=== PATIENT | male | born 1940 | race Caucasian/White ===

== ENCOUNTER → 2016-07-05 | Outpatient (CLI) | payer OTHER ==
--- NOTE | 2016-07-05 16:36 | DX ---
Bilateral feet, 3 views each side.. History: Painful bunions, evaluate for arthritis. Comparison examination:none available Findings: Left foot: Moderate hallux valgus with lateral subluxation of the sesamoids. Bipartite tibial sesamoi d. Mild joint space narrowing of the first metatarsal phalangeal joint. Small plantar calcaneal spur incidentally noted. Right foot: Moderate hallux valgus, again with mild joint space narrowing of the first metatarsal pha langeal joint. Bipartite tibial sesamoid, with lateral subluxation of the sesamoids. Study is otherwise unremarkable. No erosive changes identified. 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
== END ==
LOC: BMCIMAGING 11:15
PROVIDERS: ATTEND Podiatrist Foot & Ankle Surgery
DX: M21.611 Bunion of right foot (principal); M20.11 Hallux valgus (acquired), right foot; M19.071 Primary osteoarthritis, right ankle and foot; M21.612 Bunion of left foot; M20.12 Hallux valgus (acquired), left foot; M19.072 Primary osteoarthritis, left ankle and foot

== ENCOUNTER → 2017-01-03 | Outpatient (CLI) | payer OTHER | LOC: BHFA 10:00 | PROVIDERS: ATTEND Internal Medicine Cardiovascular Disease | DX: I48.91 Unspecified atrial fibrillation (principal) ==

== ENCOUNTER 2017-07-23 16:09 | Observation (INO) | payer OTHER ==
--- NOTE | 2017-07-23 16:49 | CPEKG ---
Heart Rate: 73 RR Interval: 822 P-R Interval: 188 QRSD Interval: 92 QT Interval: 352 QTC Interval: 388 P [place]: 31 QRS [place]: 7 T Wave [place]: 41 EKG Severity - NORMAL ECG - EKG Impression: SINUS RHYTHM Electronically Signed By: Celine Toney 23-Jul-2017 22:58:04
[2017-07-23] MEDS ORDERED: NS 1,000 ML IV ONE (16:51)
--- NOTE | 2017-07-23 16:51 | EDPHY ---
H & P Stated Complaint: pt was unsteady/tripped hiking/prob getting up/hx afib Time Seen by Provider: 07/23/17 16:50 HPI/ROS: HPI: This is a 76-year-old male who presents with Chief Complaint: pt was unsteady/tripped hiking/prob getting up/hx afib Location: Head Quality: Dizziness Duration: 1 hr prior to arrival Signs and Symptoms: no shortness of breath at rest, no shortness of breath on exertion, no cough, no chest pain, no palpitations, no lower extremity edema, no wheezing, no orthopnea, no paroxysmal nocturnal dyspnea, no fever, no injury/ trauma, no hemoptysis Timing: Acute Severity: Moderate Context: History of atrial fibrillation on Cardizem and aspirin presents to the emergency with complaints of waking up not feeling right. He went for a hike and 20 min and started to feel lightheaded and tripped over a rock with his feet landing forward. He reports that he did not lose consciousness but is not able to 100% tell me that he can remember all of the events. He denies any headache/neck pain/nausea/vomiting. reports this morning he felt "off" and feels like his bilateral legs are not coordinated likely should be and feels some balance deficits. Patient reports that he has a history atrial fibrillation and is followed by Dr. Fitch. Has a monitor and placed in his chest ; last interrogation was 1-2 years ago. Denies any chest pain/palpitation/ lower extremity edema. Patient reports that his son was arrested yesterday and has been under a lot of stress since that time. Denies any cough, fever, urinary symptoms. Modifying Factors: None Comment: ROS: see HPI Constitutional: No fever, no chills, no weight loss Eyes: No blurred vision Respiratory: No shortness of breath, no cough Cardiovascular: No chest pain, no palpitations, no lower extremity edema Gastrointestinal: No nausea, no vomiting, no diarrhea Genitourinary: No dysuria Extremities: No myalgias Neurologic: No weakness, no numbness Skin: No rashes Hematologic: No bruising, no bleeding MEDICAL/SURGICAL/SOCIAL HISTORY: Medical history: AFIB, HTN, erectile dysfunction Surgical history: Denies Social history: with children. CONSTITUTIONAL: Extremely pleasant elderly white male, at bedside, awake and alert, no obvious distress HEENT: Atraumatic and normocephalic, PERRL, EOMI. Tympanic membranes clear. Oropharynx clear, no exudate and moist pink mucosa. Airway patent. No lymphadenopathy. No meningismus. Cardiovascular: Normal S1/S2, regular rate, regular rhythm, without murmur rub or gallop. PULMONARY/CHEST: Symmetrical and nontender. Clear to auscultation bilaterally. Good air movement. No accessory muscle usage. ABDOMEN: Soft, nondistended, nontender, no rebound, no guarding, no peritoneal signs, no masses or organomegaly. No CVAT. EXTREMITIES: 2/2 pulses, strength 5/5, no deformities, no clubbing, no cyanosis or edema. NEUROLOGICAL: no focal neuro deficits. GCS 15. SKIN: Warm and dry, no erythema. no rash. Good capillary refill. Source: Patient Exam Limitations: No limitations - Personal History Current Tetanus/Diphtheria Vaccine: Yes Tetanus Vaccine Date: < 10 - Medical/Surgical History Hx Asthma: No Hx Chronic Respiratory Disease: No Hx Diabetes: No Hx Cardiac Disease: Yes Hx Renal Disease: No Hx Cirrhosis: No Hx Alcoholism: No Hx HIV/AIDS: No Hx Splenectomy or Spleen Trauma: No Other PMH: AFIB,HTN,erectile dysfunction - Social History Smoking Status: Never smoked Constitutional: Initial Vital Signs Temperature (C) 36.2 C 07/23/17 16:21 Heart Rate 81 07/23/17 16:21 Respiratory Rate 18 07/23/17 16:21 Blood Pressure 147/101 H 07/23/17 16:21 O2 Sat (%) 94 07/23/17 16:21 O2 Delivery Mode Room Air Allergies/Adverse Reactions: No Known Allergies Allergy (Verified 07/23/17 16:19) Home Medications: Medication Instructions Recorded Ascorbic Acid [Vitamin C 500 mg 500 mg PO DAILY 03/02/15 (*)] Lisinopril [Zestril 40 mg (*)] 40 mg PO DAILY 03/02/15 Multivitamins [Multivitamin (*)] 1 each PO DAILY 03/02/15 [place]-3 Fatty Acids [Fish Oil 1000 2,000 mg PO DAILY 03/02/15 mg (*)] Omeprazole 40 mg PO DAILY 03/02/15 Melatonin [Melatonin 1 mg] 1 mg PO HS PRN 12/28/15 Melatonin [Melatonin 3 MG (*)] 1.5 - 3 mg PO HS PRN #0 tab 12/29/15 Aspirin 81mg (*) 07/23/17 Cardizem 07/23/17 Medical Decision Making - Diagnostics Imaging Results: Imaging Impressions Head CT 07/23/17 16:51 Impression: No evidence for acute intracranial abnormality. Mild to moderate chronic sinus related change. Results called and discussed with Aissatou Mario on 07/23/2017, 17:47. ED Course/Re-evaluation: EKG, labs, head CT scan, urinalysis EKG shows normal sinus rhythm with a rate of 73 beats per minute. Head CT scan per radiologist no acute intracranial process. Orthostatics unable to be obtained as patient was standing and leaning towards the right. Labs reviewed and grossly unremarkable. Differential at this point includes syncope versus CVA; symptoms started this morning; not tPA candidate. 1755: ED decision to consult for admission. Spoke with hospitalist, Dr. Leiva , who kindly agrees to admit patient for further evaluation and treatment. Agrees with ordering MRI Brain without, angio head and neck. This patient was seen under the supervision of my primary supervising physician. I evaluated care for this patient independently. Discussed this patient with Dr. Toney who did not see the patient. Differential Diagnosis: Dizziness including but not limited to peripheral and central causes of vertigo , orthostatic causes including dehydration, and blood loss. - Data Points Laboratory Results: Laboratory Results 07/23/17 17:05 07/23/17 17:05 07/23/17 07/23/17 17:05 17:05 WBC 4.56 10^3/uL 10^3/uL (3.80-9.50) RBC 5.53 10^6/uL 10^6/uL (4.40-6.38) Hgb 15.8 g/dL g/dL (13.7-17.5) Hct 46.2 % % (40.0-51.0) MCV 83.5 fL fL (81.5-99.8) MCH 28.6 pg pg (27.9-34.1) MCHC 34.2 g/dL g/dL (32.4-36.7) RDW 13.4 % % (11.5-15.2) Plt Count 138 10^3/uL L 10^3/uL (150-400) MPV 9.5 fL fL (8.7-11.7) Neut % (Auto) 89.6 % H % (39.3-74.2) Lymph % (Auto) 4.8 % L % (15.0-45.0) [place] % (Auto) 3.7 % L % (4.5-13.0) Eos % (Auto) 1.1 % % (0.6-7.6) Baso % (Auto) 0.4 % % (0.3-1.7) Nucleat RBC Rel Count 0.0 % % (0.0-0.2) Absolute Neuts (auto) 4.08 10^3/uL 10^3/uL (1.70-6.50) Absolute Lymphs (auto) 0.22 10^3/uL L 10^3/uL (1.00-3.00) Absolute Monos (auto) 0.17 10^3/uL L 10^3/uL (0.30-0.80) Absolute Eos (auto) 0.05 10^3/uL 10^3/uL (0.03-0.40) Absolute Basos (auto) 0.02 10^3/uL 10^3/uL (0.02-0.10) Absolute Nucleated RBC 0.00 10^3/uL 10^3/uL (0-0.01) Immature Gran % 0.4 % % (0.0-1.1) Immature Gran # 0.02 10^3/uL 10^3/uL (0.00-0.10) Sodium 136 mEq/L mEq/L (135-145) Potassium 3.8 mEq/L mEq/L (3.5-5.2) Chloride 102 mEq/L mEq/L (97-110) Carbon Dioxide 23 mEq/l mEq/l (22-31) Anion Gap 11 mEq/L mEq/L (8-16) BUN 17 mg/dL mg/dL (7-23) Creatinine 0.9 mg/dL mg/dL (0.7-1.3) Estimated GFR > 60 Glucose 105 mg/dL H mg/dL (70-100) Calcium 8.7 mg/dL mg/dL (8.5-10.4) Troponin I < 0.012 ng/mL ng/mL (0.000-0.034) NT-Pro-B Natriuret Pep 448 pg/mL H pg/mL (0-125) Medications Given: Discontinued Medications Sodium Chloride (Ns) 1,000 mls @ 0 mls/hr IV ONCE ONE; Wide Open PRN Reason: Protocol Stop: 07/23/17 16:52 Last Admin: 07/23/17 17:53 Dose: 1,000 mls Departure - Departure Disposition: [facility] Inpatient Acute Clinical Impression: Syncope Qualifiers: Syncope type: unspecified Qualified Code(s): R55 - Syncope and collapse TIA (transient ischemic attack) Qualifiers: Transient cerebral ischemia type: unspecified Qualified Code(s): G45.9 - Transient cerebral ischemic attack, unspecified Condition: Fair
[2017-07-23 17:40] LABS: PLATELET COUNT 138 10^3/uL (150-400)
[2017-07-23] MEDS ORDERED: HYDROCODONE/APAP 5/325 TAB PO PRN (19:43)
[2017-07-23] MEDS ORDERED: ACETAMINOPHEN 325 MG TAB PO PRN (19:43)
[2017-07-23] MEDS ORDERED: NS 1,000 ML IV SCH (19:45)
[2017-07-23] MEDS ORDERED: GADOBUTROL 10 ML VIAL IVP ONE (19:54)
[2017-07-24 04:17] LABS: PLATELET COUNT 108 10^3/uL (150-400)
[2017-07-24] MEDS ORDERED: DILTIAZEM CD 180 MG CAP PO SCH (09:00)
[2017-07-24] MEDS ORDERED: ENOXAPARIN 40 MG/0.4 ML SYR SC SCH (09:00)
--- NOTE | 2017-07-24 09:46 | PDGENHP ---
History and Physical - Chief Complaint Dizziness - History of Present Illness Source-patient provides history appears reliable. EMR was reviewed and case discussed with accepting hospitalist provider. HPI-this is a very pleasant 76-year-old gentleman with past medical history significant for paroxysmal atrial fibrillation, hypertension who presents emergency department with complaints of lightheadedness and dizziness. Patient denies any vertiginous type symptoms. Patient had been walking on a hike approximately 20 min when he began to developed increasing lightheadedness and feeling "clumsy" while on the trail. Patient reports he may have had some right -sided weakness more than the left. He denies any associated numbness tingling. He denies any headache, changes in vision, chest pain, shortness of breath, diaphoresis. Patient denies any loss of consciousness but he did fall to the ground without any head injury. He was not able to stand up on his own secondary to his lower extremity weakness. Bystanders were able to help the patient down the mountain but patient was still able to ambulate. Patient does complain of some neck soreness but denies any stiffness. He has not had any orthopnea PND or lower extremity edema. Patient's drove him to the emergency department. Patient denies any significant increase in altitude for his hike. Upon review of systems patient reports that he has been experiencing night sweats where he is drenched. He denies any associated weight loss. No fevers or chills. History Information - Allergies/Home Medication List Allergies/Adverse Reactions: No Known Allergies Allergy (Verified 07/23/17 16:19) Home Medications: Ascorbic Acid [Vitamin C 500 mg (*)] 500 mg PO DAILY 03/02/15 [Last Taken ] Lisinopril [Zestril 40 mg (*)] 40 mg PO DAILY 03/02/15 [Last Taken 07/23/17] Multivitamins [Multivitamin (*)] 1 each PO DAILY 03/02/15 [Last Taken 07/23/17] [place]-3 Fatty Acids [Fish Oil 1000 mg (*)] 2,000 mg PO DAILY 03/02/15 [Last Taken 07/23/17] Melatonin [Melatonin 1 mg] 1 mg PO HS PRN 12/28/15 [Last Taken 07/22/17] Aspirin EC [Aspirin EC 81 mg (*)] 81 mg PO HS 07/23/17 [Last Taken 07/22/17] Diltiazem HCl [Diltiazem ER] 180 mg PO DAILY 07/23/17 [Last Taken 07/23/17] Meloxicam 15 mg PO DAILY PRN 07/23/17 [Last Taken 1 Week Ago ~07/16/17] Potassium Chloride [Klor-Con 10] 20 meq PO DAILY 07/23/17 [Last Taken 07/23/17] Propafenone HCl [Propafenone HCl ER] 225 mg PO BID 07/23/17 [Last Taken 09:00] I have personally reviewed and updated: family history, medical history, social history, surgical history - Past Medical History Additional medical history: Paroxysmal atrial fibrillation - not on anticoagulation as he is status post ablation, HTN, ED - Surgical History Additional surgical history: Patient with a loop recorder in place since 2014. He is status post an ablation. He has also had shoulder surgery. - Family History Additional family history: No family history of DVT. Mother with history of thyroid cancer. Brother with multiple myeloma. - Social History Smoking Status: Never smoked Alcohol Use: Occasionally Drug Use: None Additional social history: Patient is lives with his . He drinks small glasses of wine on a regular basis he reports he does not quite go through 1 bottle per week. He denies any drugs or tobacco use. Cor is full Review of Systems Review of Systems: ROS: 10pt was reviewed & negative except for what was stated in HPI & below Physical Exam Physical Exam: Selected Entries 07/23/17 07/23/17 16:21 22:40 Blood Pressure Automatic Method Heart Rate 81 Heart Rate [ 77 Sitting] Heart Rate [ 72 Standing] Heart Rate [ 70 Supine] Respiratory 18 Rate O2 Sat (%) 94 Temperature (C) 36.2 C Blood Pressure 147/101 H Blood Pressure 130/85 H [Sitting] Blood Pressure 114/83 H [Standing] Blood Pressure 136/67 H [Supine] Mean Arterial 116 H Pressure (MAP) O2 Delivery Room Air Mode Temperature Oral Source Temp Pulse Resp BP Pulse Ox 35.8 C L 94 20 119/68 91 L 07/24/17 08:41 07/24/17 08:41 07/24/17 08:41 07/24/17 08:41 07/24/17 08:41 O2 (L/minute) 1 Constitutional: no apparent distress, appears nourished, not in pain, other ( NAD. Patient is lying quietly in bed asleep. He wakes easily to name. He does appear fatigued. Pleasant and cooperative.) Eyes: PERRL, anicteric sclera, EOMI Ears, Nose, Mouth, Throat: moist mucous membranes, other (No nasal discharge.), No poor dentition Cardiovascular: regular rate and rhythym, no murmur, rub, or gallop, No edema Peripheral Pulses: 2+: dorsalis-pedis (R), dorsalis-pedis (L) Respiratory: no respiratory distress, no rales or rhonchi, clear to auscultation Gastrointestinal: normoactive bowel sounds, soft, non-tender abdomen, no palpable masses, No guarding, No distension Genitourinary: no bladder tenderness, No clemente in urethra Skin: warm, normal color, no rashes or abrasions Musculoskeletal: full muscle strength, No generalized weakness Neurologic: AAOx3, sensation intact bilaterally, CN II-XII Intact, No weakness, No facial droop Psychiatric: interacting appropriately, not anxious, not encephalopathic, thought process linear Lab Data & Imaging Review 07/24/17 03:49 07/24/17 03:49 WBC 3.08 10^3/uL (3.80-9.50) L 07/24/17 03:49 RBC 4.97 10^6/uL (4.40-6.38) 07/24/17 03:49 Hgb 14.0 g/dL (13.7-17.5) 07/24/17 03:49 Hct 41.4 % (40.0-51.0) 07/24/17 03:49 MCV 83.3 fL (81.5-99.8) 07/24/17 03:49 MCH 28.2 pg (27.9-34.1) 07/24/17 03:49 MCHC 33.8 g/dL (32.4-36.7) 07/24/17 03:49 RDW 13.4 % (11.5-15.2) 07/24/17 03:49 Plt Count 108 10^3/uL (150-400) L 07/24/17 03:49 MPV 9.8 fL (8.7-11.7) 07/24/17 03:49 Neut % (Auto) 84.2 % (39.3-74.2) H 07/24/17 03:49 Lymph % (Auto) 8.1 % (15.0-45.0) L 07/24/17 03:49 [place] % (Auto) 5.5 % (4.5-13.0) 07/24/17 03:49 Eos % (Auto) 1.3 % (0.6-7.6) 07/24/17 03:49 Baso % (Auto) 0.3 % (0.3-1.7) 07/24/17 03:49 Nucleat RBC Rel Count 0.0 % (0.0-0.2) 07/24/17 03:49 Absolute Neuts (auto) 2.59 10^3/uL (1.70-6.50) 07/24/17 03:49 Absolute Lymphs (auto) 0.25 10^3/uL (1.00-3.00) L 07/24/17 03:49 Absolute Monos (auto) 0.17 10^3/uL (0.30-0.80) L 07/24/17 03:49 Absolute Eos (auto) 0.04 10^3/uL (0.03-0.40) 07/24/17 03:49 Absolute Basos (auto) 0.01 10^3/uL (0.02-0.10) L 07/24/17 03:49 Absolute Nucleated RBC 0.00 10^3/uL (0-0.01) 07/24/17 03:49 Immature Gran % 0.6 % (0.0-1.1) 07/24/17 03:49 Immature Gran # 0.02 10^3/uL (0.00-0.10) 07/24/17 03:49 Sodium 139 mEq/L (135-145) 07/24/17 03:49 Potassium 3.3 mEq/L (3.5-5.2) L 07/24/17 03:49 Chloride 105 mEq/L (97-110) 07/24/17 03:49 Carbon Dioxide 23 mEq/l (22-31) 07/24/17 03:49 Anion Gap 11 mEq/L (8-16) 07/24/17 03:49 BUN 11 mg/dL (7-23) 07/24/17 03:49 Creatinine 0.9 mg/dL (0.7-1.3) 07/24/17 03:49 Estimated GFR > 60 07/24/17 03:49 Glucose 136 mg/dL (70-100) H 07/24/17 03:49 Calcium 7.8 mg/dL (8.5-10.4) L 07/24/17 03:49 Magnesium 1.8 mg/dL (1.6-2.3) 07/24/17 03:49 Troponin I < 0.012 ng/mL (0.000-0.034) 07/24/17 03:49 NT-Pro-B Natriuret Pep 448 pg/mL (0-125) H 07/23/17 17:05 TSH 0.761 uIU/mL (0.465-4.680) 07/24/17 03:49 Urine Color YELLOW 07/23/17 18:45 Urine Appearance CLEAR 07/23/17 18:45 Urine pH 5.0 (5.0-7.5) 07/23/17 18:45 Ur Specific [place] 1.023 (1.002-1.030) 07/23/17 18:45 Urine Protein NEGATIVE (NEGATIVE) 07/23/17 18:45 Urine Ketones TRACE (NEGATIVE) H 07/23/17 18:45 Urine Blood NEGATIVE (NEGATIVE) 07/23/17 18:45 Urine Nitrate NEGATIVE (NEGATIVE) 07/23/17 18:45 Urine Bilirubin NEGATIVE (NEGATIVE) 07/23/17 18:45 Urine Urobilinogen NEGATIVE EU (0.2-1.0) 07/23/17 18:45 Ur Leukocyte Esterase NEGATIVE (NEGATIVE) 07/23/17 18:45 Urine Glucose NEGATIVE (NEGATIVE) 07/23/17 18:45 Imaging Review: CT Head Without Contrast History: Near syncope. Fall. Hit right forehead. Technique: Standard noncontrast head CT protocol utilizing axial images acquired through the calvarium. Images were reconstructed down to 1.25-mm slice thickness as well. Radiation dose technique was utilized. Findings: No evidence for intracranial mass, hemorrhage, or acute infarct. There is mild periventricular white matter change which is nonspecific and can be seen with small vessel ischemic disease. Vascular calcifications are seen intracranially indicating atherosclerotic change. Ventricles, sulci, and cisterns are within normal limits for the patient's age. No evidence for a skull fracture. Mucous membrane thickening is seen in the paranasal sinuses, more predominant in the right sphenoid sinus, and the right maxillary sinus. Impression: No evidence for acute intracranial abnormality. Mild to moderate chronic sinus related change. MR Arteriogram of the [place] Indication: Right-sided deficit, syncope. R29.818 - Neurological changes strongly suggesting intracerebral aneurysm. Technique: A guba-[id number]-zckwkz gradient echo technique was used for thin axial images at the skull base for evaluation of major vessels of the [place]. Three- dimensional technique was used with a 30-degree gradient echo flip angle and a traveling saturation band. Images were manipulated by the radiologist at the computer workstation. Comparison: CT angiogram of the head dated June 19, 2010. Findings: Normal anterior and posterior circulation. No aneurysm, occlusion, or vascular malformation. Impression: Negative. No occlusion or evidence of embolic disease. Findings discussed with Emergency Department physician, Aissatou Mario PA-C, on July 23, 2017 at 2218. MR Angiogram of the Neck Indication: Right-sided deficit, weakness. Technique: After a preliminary timing bolus run, a three-dimensional vascular [id number] study was performed from the upper chest to the skull base, using a total of 10 mL Gadavist intravenously. Images were manipulated by the radiologist at the computer workstation. Additionally, an axial T1 fat-suppressed sequence was obtained through the neck. Comparison: CT angiogram of the neck dated June 19, 2010. Findings: The aortic arch has typical three-vessel branching anatomy. The common carotid, carotid bulbs, internal and external carotid arteries, and vertebral arteries are all patent. No narrowing, flow-limiting stenosis, occlusion, or dissection. No intimal hematoma on the T1 axial imaging. Impression: Normal MR angiogram of the neck. No evidence of flow-limiting stenosis, occlusion, or dissection. EKG additional interpertation: NSR 70s QTC 388. No acute ST changes. Normal EKG. Assessment & Plan Assessment: Syncope (Acute) - patient is unsure if he actually had any loss of consciousness although he does have a period where he is not able to recall. Orthostatics without significant change in blood pressures. Patient did report that his lower extremity on weakness he noted earlier has improved since his arrival. Will plan to continue some IV fluid hydration. Repeat labs. Patient without any evidence of arrhythmia on telemetry overnight but discussed differential with the patient including arrhythmia, dehydration, hypotension, vasovagal or TA. Reassure there is no evidence of acute infarct on imaging studies. Patient without any history of a focal deficit on exam. CT head, MRI MRA is negative for any evidence of a CVA. Patient without any focal deficits. Patient has been in normal sinus rhythm on the telemetry floor. He does have a loop recorder in place but he has not had any issues since his ablation with AFib. He is not on any anticoagulation. May need further discuss with Cardiology. Left extremity weakness- PT OT consultation. Patient currently reports symptoms have resolved. Atrial fibrillation-resume patient's Cardizem when list available. Status post ablation. Patient is not on anticoagulation. Benign essential hypertension-patient's blood pressure is slightly elevated but acceptable. Resume his home medications in the morning when med rec available. Hypokalemia-replacement. FEN - IV fluid hydration overnight. Monitor electrolytes replace if needed. Advance diet as tolerated. Prophylaxis-SCDs. Lovenox if patient should stay additional day otherwise encourage mobilization and. Cor status-full
[2017-07-24 12:07] VITALS: BP 114/76; RESP 16; TEMP 98.3
[2017-07-24] MEDS ORDERED: POTASSIUM CHLORIDE 20 MEQ PO SCH (13:30)
[2017-07-24] MEDS ORDERED: LISINOPRIL 40 MG TAB PO SCH (13:30)
[2017-07-24] MEDS ORDERED: PROPAFENONE HCL SR 225 MG CAP PO SCH (13:30)
[2017-07-24] MEDS ORDERED: POTASSIUM CL 10 MEQ TAB PO SCH (13:45)
--- NOTE | 2017-07-24 13:47 | HOSPPROG ---
Hospitalist Progress Note Assessment/Plan: 76 yo M w syncope neg eval home today see dc summary Subjective: no events tele Objective: Vital Signs Temp Pulse Resp BP Pulse Ox 36.8 C 112 H 16 114/76 91 L 07/24/17 12:00 07/24/17 12:00 07/24/17 12:00 07/24/17 12:00 07/24/17 12:00 Laboratory Results 07/24/17 03:49 07/24/17 03:49 07/23/17 07/24/17 07/25/17 05:59 05:59 05:59 Intake Total 2000 Output Total 500 Balance 1500 - Physical Exam Constitutional: no apparent distress, appears nourished Eyes: PERRL, anicteric sclera Ears, Nose, Mouth, Throat: moist mucous membranes, hearing normal Cardiovascular: regular rate and rhythym, no murmur, rub, or gallop Respiratory: no respiratory distress, no rales or rhonchi Gastrointestinal: normoactive bowel sounds, soft, non-tender abdomen Genitourinary: no bladder fullness, No clemente in urethra Skin: warm, normal color Musculoskeletal: full muscle strength, no muscle tenderness Neurologic: AAOx3 ICD10 Worksheet Patient Problems: Problems Problem Status Onset Syncope Acute TIA (transient ischemic attack) Acute Atrial fibrillation or flutter Acute
[2017-07-24 13:58] VITALS: PULSE 100; O2SAT 90
--- NOTE | 2017-07-24 14:10 | GDS ---
[f rep st] DISCHARGE SUMMARY DISCHARGE DIAGNOSES: 1. Syncope. 2. History of atrial fibrillation status post ablation. 3. Hypertension. HOSPITAL COURSE: Please see Admission History and Physical by Dr. Danuta Reyna. The patient present ed with a syncopal episode that was accompanied with bilateral lower extremity weakness. He was eval uated for stroke with MRI and MRA of the head and neck, and these were all unremarkable. His symptom s of weakness rapidly resolved. They were never in neurovascular territory. He had an EKG showing s inus rhythm without ischemic changes and negative troponins. He was followed on telemetry which reve aled recurrent paroxysmal atrial fibrillation that occurred after admission but was otherwise unremar kable. He was feeling well and amenable to discharge on the day of discharge, and he was, therefore, discharged. /[id number]/MODL
--- NOTE | 2017-07-24 14:16 | ASMTCASEMG ---
Living Arrangements What is your living Answers: Alone arrangement? Who do you live with? Type Of Residence What kind of residence do Answers: House you live in? Discharge Plan Comments Coordination Status Comments Notes: Pts case discussed in morning rounds. Pt is a 76 y/o man admitted for TIA and syncope. PT is recommending home w/ 24hr supervision. CM met w/ pt for dispo planning. Pt reports that he lives w/ his alf partner. CM provided pt and partner w/ list of non skilled HC agencies. Pt reports that he is not interested in having home supervision. Pts partner reports that he is very active. CM available for changes. Plan: Independent Date Signed: 07/24/2017 02:15 PM Electronically Signed By:NEHA Valdez
[2017-07-24] MEDS ORDERED: ASPIRIN EC 81 MG TAB PO SCH (21:00)
== END 2017-07-24 15:18 | disposition home or self-care (01) ==
LOC: INTOOBSV 17:56 → F2W 18:44
PROVIDERS: ADMIT Internal Medicine; ATTEND Internal Medicine
DX: R55 Syncope and collapse (principal); R53.1 Weakness; I48.91 Unspecified atrial fibrillation; I10 Essential (primary) hypertension
CPT/HCPCS: 70450; 70544; 70548; 70551; 93005; 96360; 97112; 97161; 97165; 97535; 99285; A9585; G0378; G8978; G8979; G8987; G8988; J1650

== ENCOUNTER 2017-09-09 16:21 | Emergency (ER) | payer OTHER ==
--- NOTE | 2017-09-09 17:13 | EDPHY ---
H & P Stated Complaint: right leg wound from melanoma sx last week Time Seen by Provider: 09/09/17 17:12 HPI/ROS: HPI: This is a 76-year-old male who presents with Chief Complaint: Right leg biopsy concern Location: Right leg Quality: Biopsy concern Duration: 3-5 days Signs and Symptoms: No bleeding, no radiation, no numbness, no weakness, no tingling, no incontinence, no decreased range of motion, + swelling, no pain, no fever, + bruising, no discharge Timing: Gradually worsening Severity: [id number] Context: Patient reports that he was seen last Saturday approximately [address] Bartlett at [facility] for melanoma biopsies. He reports or 4 areas that were biopsy that required suture and Steri-Strips placement. He reports that the area on the posterior portion of his right knee appears to be pulling apart knee can see the internal suture. He reports bruising in the area in his groin and around his knee but denies any redness/ warmth/drainage. He called the dermatology office today and did not receive a return phone call. Has atrial fibrillation and only takes aspirin. Reports tetanus current. Denies paresthesias/weakness/decreased range of motion/groin or testicular pain. Modifying Factors: None Comment: ROS: see HPI Constitutional: No fever, no chills, no weight loss Eyes: No blurred vision Respiratory: No shortness of breath, no cough Cardiovascular: No chest pain Gastrointestinal: No nausea, no vomiting no diarrhea Genitourinary: No dysuria Extremities: No myalgias Neurologic: No weakness, no numbness Skin: No rashes Hematologic: No bruising, no bleeding MEDICAL/SURGICAL/SOCIAL HISTORY: Medical/Surgical history: AFIB with multiple EP ablations with sebastien, linQ recorder placed 10/15/2014, HTN, erectile dysfunction, melanoma Social history: Retired. Family history noncontributory. CONSTITUTIONAL: Extremely pleasant elderly white male, appears younger than stated age, awake and alert, no obvious distress HEENT: Atraumatic and normocephalic. Cardiovascular: Normal S1/S2, regular rate, regular rhythm, without murmur rub or gallop. PULMONARY/CHEST: Symmetrical and nontender. no crepitus. Clear to auscultation bilaterally. Good air movement. No accessory muscle usage. ABDOMEN: Soft, nondistended, nontender, no ecchymosis. EXTREMITIES: 2/2 pulses, strength 5/5, right KNEE: no effusion, no medial and lateral joint line tenderness, full extension to 180, flexion to 120. No pain with varus and valgus exam. No pain with anterior drawer or posterior drawer test. no deformities, no clubbing, no cyanosis or edema. NEUROLOGICAL: no focal neuro deficits. GCS 15. Light touch sensation intact. SKIN: Warm and dry, right groin Steri-Strips in place; surrounding ecchymosis noted. Right posterior knee for areas of biopsy noted with Steri-Strips in place. 1 inch incision medial portion small area of wound dehiscence; internal sutures visible; no erythema/discharge. no erythema. no rash. Good capillary refill. Source: Patient Exam Limitations: No limitations - Personal History Current Tetanus/Diphtheria Vaccine: Yes Current Tetanus Diphtheria and Acellular Pertussis (TDAP): Yes Tetanus Vaccine Date: < 10 years - Medical/Surgical History Hx Asthma: No Hx Chronic Respiratory Disease: No Hx Diabetes: No Hx Cardiac Disease: Yes Hx Renal Disease: No Hx Cirrhosis: No Hx Alcoholism: No Hx HIV/AIDS: No Hx Splenectomy or Spleen Trauma: No Other PMH: AFIB with multiple EP ablations with sebastien, linQ recorder placed 2014, HTN, erectile dysfunction, melanoma - Social History Smoking Status: Never smoked Constitutional: Initial Vital Signs Temperature (C) 36.8 C 09/09/17 16:27 Heart Rate 59 L 09/09/17 16:27 Respiratory Rate 18 09/09/17 16:27 Blood Pressure 139/85 H 09/09/17 16:27 O2 Sat (%) 98 09/09/17 16:27 O2 Delivery Mode Room Air Allergies/Adverse Reactions: No Known Allergies Allergy (Verified 09/09/17 16:27) Home Medications: Medication Instructions Recorded Ascorbic Acid [Vitamin C 500 mg 500 mg PO DAILY 03/02/15 (*)] Lisinopril [Zestril 40 mg (*)] 40 mg PO DAILY 03/02/15 Multivitamins [Multivitamin (*)] 1 each PO DAILY 03/02/15 [place]-3 Fatty Acids [Fish Oil 1000 2,000 mg PO DAILY 03/02/15 mg (*)] Melatonin [Melatonin 1 mg] 1 mg PO HS PRN 12/28/15 Aspirin EC [Aspirin EC 81 mg (*)] 81 mg PO HS 07/23/17 Diltiazem HCl [Diltiazem 24Hr ER] 180 mg PO DAILY 07/23/17 Meloxicam 15 mg PO DAILY PRN 07/23/17 Potassium Chloride [Klor-Con 10] 20 meq PO DAILY 07/23/17 Propafenone HCl [Propafenone HCl 225 mg PO BID 07/23/17 ER] Cephalexin [Keflex (*)] 500 mg PO TID #15 cap 09/09/17 Medical Decision Making Procedures: Procedure: Splint placement. A right knee immobilizer was applied by the Emergency Room electrical assembly technician. After application of the splint I returned and re-examined the patient. The splint was adequately immobilizing the joint and distal to the splint the patient's circulation and sensation was intact. ED Course/Re-evaluation: Local wound care provided Tetanus current. For areas clean with mild soap and water. Area where early wound dehiscence noted posterior knee; Mastisol and Steri-Strips placed. Covered with gauze. Placed in knee immobilizer for the next 5-7 days to decrease mobility. Given Keflex 500 mg TID for antibiotic prophylaxis. No signs of neurovascular compromise/tenting of skin/compartment syndrome/ extremities and joints examined above and below area of concern and are neurovascularly intact/septic arthritis/gouty arthropathy/cellulitis/abscess. This patient was seen under the supervision of my secondary supervising physician. I evaluated care for this patient independently. Discussed this patient with Dr. Hendrix who did not see the patient. Differential Diagnosis: Differential diagnosis includes but is not limited to wound dehiscence, cellulitis, abscess. Departure - Departure Disposition: Home, Routine, Self-Care Clinical Impression: Status post biopsy of skin Dehiscence of wound of skin Qualifiers: Encounter type: initial encounter Qualified Code(s): T81.30XA - Disruption of wound, unspecified, initial encounter Condition: Good Instructions: Wound Dehiscence (ED) Additional Instructions: Keep the dressing dry and in place for 48 hours. After 48 hours, you may remove the dressing; wash the site daily with mild soap and water; then pat dry; allow Steri-Strips to fall off on own. Wear the knee immobilizer while out of bed for the next 5-7 days to ensure adequate wound healing in posterior knee. Take Keflex 500 mg 3 times a day x 5 days for antibiotic prophylaxis. Keep follow-up appointment with head porter next . Return to the ER immediately if you experience redness, red streaks, have fevers /chills, flu like symptoms, limited range of motion, or any other symptoms that concern you. Referrals: PRINCESS GEE [Primary Care Provider] - As per Instructions Prescriptions: Cephalexin [Keflex (*)] 500 mg PO TID #15 cap
[2017-09-09 17:52] VITALS: BP 136/81
== END 2017-09-09 17:51 | disposition home or self-care (01) ==
DX: T81.30XA Disruption of wound, unspecified, initial encounter (principal); I10 Essential (primary) hypertension; Z79.82 Long term (current) use of aspirin; Z98.890 Other specified postprocedural states; Y82.8 Other medical devices associated with adverse incidents
CPT/HCPCS: 99283; L1830

== ENCOUNTER 2017-10-15 07:12 | Day surgery (SDC) | payer OTHER ==
[2017-10-15] MEDS ORDERED: LIDOCAINE 1% 300 MG/30 ML SDV SC ONE (07:18)
[2017-10-15] MEDS ORDERED: MIDAZOLAM 2 MG/2 ML VIAL ONE (07:59)
[2017-10-15] MEDS ORDERED: LIDOCAINE 1% 300 MG/30 ML SDV ONE (07:59)
[2017-10-15] MEDS ORDERED: fentaNYL 100 MCG/2 ML INJ ONE (07:59)
--- NOTE | 2017-10-15 08:02 | PDGENHP ---
History & Physical Chief Complaint: afib Relevant Physical Exam: s1s2 rrr cta ao3 Cardiorespiratory Assessment: linq explant followed by new implant for monitoring afib per pt request
--- NOTE | 2017-10-15 08:03 | PDPROPOC ---
Sedation Plan of Care Sedation Plan of Care: vital signs stable, mental status noted, patient educated of risks, benefits, alternatives, patient can tolerate sedation ASA Classification: ASA 1 Planned drugs: fentanyl, midazolam Mallampati Score: Class 2 Mallampati Reference Image: Patient passed 3-3-2 rule?: Yes
--- NOTE | 2017-10-15 11:38 | CPIP ---
[f rep st] INVASIVE CARDIAC PROCEDURE PROCEDURE PERFORMED: Explant of old LINQ ILR and implant of new LINQ ILR. INDICATION: Atrial fibrillation. PROCEDURE: The procedure was done in Cardiac Catheterization Laboratory after IV sedation was admini stered by the cardiac cathead worker RN. All sterile precautions were used. Lidocaine was infiltrated in the left parasternal area and using blunt and sharp dissection and electrocautery, the old device was removed. A new device was implanted, Reveal LINQ implant, serial number [id number]. The wound was closed with 2 clinton. There were no complications. /[id number]/MODL
== END 2017-10-15 10:30 | disposition home or self-care (01) ==
LOC: FCATH 07:12
PROVIDERS: ATTEND Internal Medicine Cardiovascular Disease
PROC: 0JH60PZ Insertion of Cardiac Rhythm Related Device into Chest Subcutaneous Tissue and Fascia, Open Approach (ICD-10-PCS; principal; 2017-10-15)
PROC: 0JPT02Z Removal of Monitoring Device from Trunk Subcutaneous Tissue and Fascia, Open Approach (ICD-10-PCS; principal; 2017-10-15)
DX: Z45.09 Encounter for adjustment and management of other cardiac device (principal); I48.91 Unspecified atrial fibrillation
CPT/HCPCS: C1764; J2250; J3010

== ENCOUNTER 2018-01-22 08:27 | Day surgery (SDC) | payer OTHER ==
[2018-01-22] MEDS ORDERED: fentaNYL 100 MCG/2 ML INJ IVP ONE (08:28)
[2018-01-22] MEDS ORDERED: MIDAZOLAM 2 MG/2 ML VIAL IVP ONE (08:28)
[2018-01-22] MEDS ORDERED: BENZOCAINE UNIT DOSE SPRAY HURRICAINE MM ONE (08:28)
[2018-01-22] MEDS ORDERED: NS 500 ML IV ONE (08:28)
--- NOTE | 2018-01-22 09:01 | PDANEPAE ---
ANE History of Present Illness DANK for Watchman pre-evaluation. ANE Past Medical History - Cardiovascular History Hx Hypertension: Yes Hx Arrhythmias: Yes - Pulmonary History Hx Oxygen in Use at Home: No Hx Sleep Apnea: Yes - Endocrine History Hx Diabetes: No - Chronic Pain History Chronic Pain: No ANE Review of Systems Review of Systems: - Exercise capacity Exercise capacity: >=4 METS METS (RN): 4 METS - Systems Cardiac: Reports: irregular heart rate (Hx A-fib) ANE Patient History - Allergies Allergies/Adverse Reactions: No Known Allergies Allergy (Verified 09/09/17 16:27) - Home Medications Home medications: home medication list seen and reviewed Home Medications: Ascorbic Acid [Vitamin C 500 mg (*)] 500 mg PO DAILY 03/02/15 [Last Taken ] Lisinopril [Zestril 40 mg (*)] 40 mg PO DAILY 03/02/15 [Last Taken 07/23/17] Multivitamins [Multivitamin (*)] 1 each PO DAILY 03/02/15 [Last Taken 07/23/17] [place]-3 Fatty Acids [Fish Oil 1000 mg (*)] 2,000 mg PO DAILY 03/02/15 [Last Taken 07/23/17] Melatonin [Melatonin 1 mg] 1 mg PO HS PRN 12/28/15 [Last Taken 07/22/17] Aspirin EC [Aspirin EC 81 mg (*)] 81 mg PO HS 07/23/17 [Last Taken 07/22/17] Diltiazem HCl [Diltiazem 24Hr ER] 180 mg PO DAILY 07/23/17 [Last Taken 07/23/17] Meloxicam 15 mg PO DAILY PRN 07/23/17 [Last Taken 1 Week Ago ~07/16/17] Potassium Chloride [Klor-Con 10] 20 meq PO DAILY 07/23/17 [Last Taken 07/23/17] Propafenone HCl [Propafenone HCl ER] 225 mg PO BID 07/23/17 [Last Taken 09:00] - NPO status NPO Status: no food or drink >8 hours - Anes Hx Anes Hx: no prior problems (chart reviewed with prior difficult intubation) - Smoking Hx Smoking Status: Never smoked ANE Labs/Vital Signs - Vital Signs Height: 180.34 cm Weight: 76.204 kg ANE Physical Exam - Airway Neck exam: FROM Mallampati Score: Class 2 Mouth exam: normal dental/mouth exam - Pulmonary Pulmonary: no respiratory distress - Cardiovascular Cardiovascular: regular rate and rhythym - ASA Status ASA Status: III ANE Anesthesia Plan Anesthesia Plan: GA with mask (IV GA)
[2018-01-22] MEDS ORDERED: PROPOFOL 200 MG/20 ML VIAL ONE (09:17)
[2018-01-22] MEDS ORDERED: LIDOCAINE 2% 2 ML INJ ONE (09:18)
--- NOTE | 2018-01-22 09:31 | PDHPUP ---
History & Physical Update H&P update statement: This history and physical update is based on an assessment of the patient which was completed after admission or registration (within 24 hours), but prior to the surgery/procedure. H&P update: changes noted (Here for PRE op DANK for consideration of Cezar )
--- NOTE | 2018-01-22 10:07 | POSTANESTH ---
Post Anesthetic Evaluation Cardiovascular Status: Similar to Pre-Op Cond Respiratory Status: Normal, Stable Level of Consciousness/Mental Status: Alert and Oriented Pain Control: Adequate, Prn Tx Ordered Nausea/Vomiting Control: Adequate, Prn Tx Ordered Complications Possibly Related to Anesthesia: None Noted
--- NOTE | 2018-01-22 19:32 | ECHO ---
[email or web address] [address] [address] Main: [phone] Fax: Transesophageal Echocardiography Name: PAULINO KIRK MR#: [id number] Study Date: 01/22/2018 Study Time: 09:19 AM Date of : 1940 Age: 77 year(s) Height: ( ) Weight: ( ) BSA: Gender: Male Examination: Indication: pre-watchman measurements Image Quality: Adequate Contrast: Requested by: Gael Dunn Heart Rate: Rhythm: BP: / Procedure Staff Redeye Gunner: Jessica Lewis [facility] Reading Physician: Gael Dunn MD Requesting Provider: DANK Exam Details Conclusions: Normal size left ventricle. Normal global systolic LV function. Normal appearing atrial septum. The SAMEER is broccoli shape-multiple lobes. 0 degrees -Ostium width 24mm length 33mm 45 degress- Ostium width 22mm length 29mm 90 degrees -Ostium width 22mm length 26mm 135 degrees -Ostium width 25mm length 31mm . Measurements: Chambers Valvular Assessment AV/MV Valvular Assessment TV/PV Normal Normal Normal Name Value Range Name Value Range Name Value Range Additional Measurements: Findings: Left Ventricle: Normal size left ventricle. There is a sigmoid shaped septum is present, which is a normal finding in the elderly. . Normal global systolic LV function. Left Atrium: Normal appearing atrial septum. Left Atrial Appendage: No thrombus in left appendage. The SAMEER is broccoli shape-multiple lobes. 0 degrees -Ostium width 24mm length 33mm 45 degress- Ostium width 22mm length 29mm 90 degrees -Ostium width 22mm Patient: PAULINO KIRK Study Date: 01/22/2018 Page 1 of 2 09:19 AM length 26mm 135 degrees -Ostium width 25mm length 31mm . 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 Mitral Valve: The mitral valve is normal in appearance and function. Trivial mitral valve regurgitation. Aortic Valve: The aortic valve is normal in appearance and function. There is no aortic valve regurgitation. Aorta: Mildly dilated. Pericardium: No pericardial effusion. l1n (No Signature Object) Patient: PAULINO KIRK Study Date: 01/22/2018 Page 2 of 2 09:19 AM [id number]
== END 2018-01-22 11:30 | disposition home or self-care (01) ==
LOC: FCATH 08:27
PROVIDERS: ATTEND Internal Medicine Cardiovascular Disease
PROC: B246ZZ4 Ultrasonography of Right and Left Heart, Transesophageal (ICD-10-PCS; principal; 2018-01-22)
DX: I48.0 Paroxysmal atrial fibrillation (principal); I10 Essential (primary) hypertension
CPT/HCPCS: J2704

== ENCOUNTER 2018-02-26 06:34 | Inpatient (IN) | payer OTHER ==
[2018-02-26] MEDS ORDERED: NS 1,000 ML IV ONE (06:35)
[2018-02-26] MEDS ORDERED: IOPAMIDOL (ISOVUE-300) 150 ML BTL ONE ×2 (06:55→08:38)
[2018-02-26] MEDS ORDERED: LIDOCAINE 1% 300 MG/30 ML SDV ONE (06:55)
[2018-02-26] MEDS ORDERED: ceFAZolin 2 GM/DEXTROSE 100 ML IV ONE (07:00)
[2018-02-26] MEDS ORDERED: REMIFENTANIL HCL 1 MG VIAL ONE (07:19)
[2018-02-26] MEDS ORDERED: fentaNYL 100 MCG/2 ML INJ ONE (07:19)
[2018-02-26] MEDS ORDERED: PROPOFOL/EMULSION 500 MG/50 ML BOTTLE IV ONE (07:20)
[2018-02-26] MEDS ORDERED: PROTAMINE SULFATE 50 MG/5 ML VIAL IVP ONE (08:53)
[2018-02-26] MEDS ORDERED: DEXAMETHASONE 4 MG/ML VIAL ONE (08:56)
[2018-02-26] MEDS ORDERED: ROCURONIUM 50 MG/5 ML VIAL ONE (08:56)
[2018-02-26] MEDS ORDERED: SUGAMMADEX SODIUM 200 MG/2 ML VIAL IVP ONE (08:57)
[2018-02-26] MEDS ORDERED: PHENYLEPHRINE HCL 100 MCG/ML SYR ONE (08:57)
--- NOTE | 2018-02-26 09:14 | PDHPUP ---
History & Physical Update H&P update statement: This history and physical update is based on an assessment of the patient which was completed after admission or registration (within 24 hours), but prior to the surgery/procedure. H&P update: H&P reviewed & patient examined, no change in patient's condition since H&P completed
--- NOTE | 2018-02-26 09:14 | PDPROPOC ---
Sedation Plan of Care Sedation Plan of Care: mental status noted, patient educated of risks, benefits , alternatives, patient can tolerate sedation ASA Classification: ASA 2 Planned drugs: other Mallampati Score: Class 2 Mallampati Reference Image: Patient passed 3-3-2 rule?: Yes
[2018-02-26] MEDS ORDERED: ONDANSETRON 4 MG/2 ML VIAL IVP PRN (09:16)
[2018-02-26] MEDS ORDERED: LORazepam 2 MG/ML INJ IVP PRN (09:16)
[2018-02-26] MEDS ORDERED: HYDROCODONE/APAP 5/325 TAB PO PRN (09:16)
[2018-02-26] MEDS ORDERED: OXYCODONE/APAP 5/325 TAB PO PRN (09:16)
[2018-02-26] MEDS ORDERED: TEMAZEPAM 15 MG CAP PO PRN (09:16)
[2018-02-26] MEDS ORDERED: NITROGLYCERIN 0.4 MG BTL SL PRN (09:16)
[2018-02-26] MEDS ORDERED: ATROPINE SULFATE 1 MG/10 ML SYR IVP PRN (09:16)
[2018-02-26] MEDS ORDERED: diphenhydrAMINE 25 MG CAP PO PRN (09:18)
[2018-02-26] MEDS ORDERED: MELATONIN 3 MG TAB PO PRN (09:18)
--- NOTE | 2018-02-26 09:36 | POSTANESTH ---
Post Anesthetic Evaluation Cardiovascular Status: Normal, Stable Respiratory Status: Normal, Stable Level of Consciousness/Mental Status: Can Participate in Eval Pain Control: Adequate, Prn Tx Ordered Nausea/Vomiting Control: Adequate, Prn Tx Ordered Complications Possibly Related to Anesthesia: None Noted
--- NOTE | 2018-02-26 09:38 | PDANEPAE ---
ANE History of Present Illness 77 YO For Watchman . Original Preop done prior to procedure, not saved in cuaQea ANE Past Medical History - Cardiovascular History Hx Hypertension: Yes Hx Arrhythmias: Yes - Pulmonary History Hx Oxygen in Use at Home: No Hx Sleep Apnea: Yes - Endocrine History Hx Diabetes: No - Chronic Pain History Chronic Pain: No ANE Review of Systems Review of Systems: ANE Patient History - Allergies Allergies/Adverse Reactions: No Known Allergies Allergy (Verified 09/09/17 16:27) - Home Medications Home medications: home medication list seen and reviewed Home Medications: Ascorbic Acid [Vitamin C 500 mg (*)] 500 mg PO DAILY 03/02/15 [Last Taken ] Lisinopril [Zestril 40 mg (*)] 40 mg PO DAILY 03/02/15 [Last Taken 02/25/18] Multivitamins [Multivitamin (*)] 1 each PO DAILY 03/02/15 [Last Taken 02/25/18] [place]-3 Fatty Acids [Fish Oil 1000 mg (*)] 2,000 mg PO DAILY 03/02/15 [Last Taken 02/25/18] Diltiazem HCl [Diltiazem 24Hr ER] 180 mg PO DAILY 07/23/17 [Last Taken 02/25/18] Potassium Chloride [Klor-Con 10] 20 meq PO DAILY 07/23/17 [Last Taken 02/25/18] Propafenone HCl [Propafenone HCl ER] 225 mg PO BID 07/23/17 [Last Taken 02/25/18 ] Ascorbic Acid [Vitamin C 500 mg (*)] 500 mg PO DAILY 02/19/18 [Last Taken ] Aspirin [Aspirin 325 mg (*)] 325 mg PO DAILY 02/19/18 [Last Taken 02/25/18] Compounded Testosterone Cream 1 medhat TP DAILY 02/19/18 [Last Taken 02/25/18] Herbals/Supplements -Info Only 1 ea PO DAILY 02/19/18 [Last Taken 02/25/18] Melatonin [Melatonin 3 MG (*)] 3 mg PO HS PRN 02/19/18 [Last Taken 02/25/18] diphenhydrAMINE [Benadryl 25 MG (*)] 25 mg PO HS PRN 02/19/18 [Last Taken ] - NPO status NPO Status: no food or drink >8 hours - Smoking Hx Smoking Status: Never smoked ANE Labs/Vital Signs - Vital Signs Height: 6 ft 0.05 in Weight: 76.3 kg ANE Physical Exam - Airway Neck exam: FROM Mallampati Score: Class 2 Mouth exam: normal dental/mouth exam - Pulmonary Pulmonary: no respiratory distress - Cardiovascular Cardiovascular: regular rate and rhythym - ASA Status ASA Status: III ANE Anesthesia Plan Anesthesia Plan: general endotracheal anesthesia
--- NOTE | 2018-02-26 09:55 | CPIP ---
DATE OF PROCEDURE: 02/26/2018 INDICATION FOR PROCEDURE: Elevated CHADS VASc score, paroxysmal atrial fibrillation. CO-SURGEON: Gael Dunn MD PROCEDURE: 1. 8-Gibralt[place] sheath right common femoral vein. 2. Transseptal [place] catheter and wire. 3. Placement of Watchman 33 mm device by the transseptal route. HISTORY: Briefly, this is a 77-year-old male with history of paroxysmal atrial fibrillation, frequen t falls and elevated CHADS VASc score, who was deemed to be a stable candidate for Watchman placement . DESCRIPTION OF PROCEDURE: After informed consent was obtained, the patient was brought to [facility] where the patient was electively intubated. DANK performed by Dr. Gael Dunn. The patient was administered 2 g of Ancef prior to the case. 8-Gibraltarian sheath placed in right the common femoral vein. Through t he 8-Gibraltarian sheath a [place] catheter was advanced and transseptal access was obtained. [place] wire w as placed in the left atrium. Sheath was removed. A Watchman sheath was placed in the left atrium. Left atrial pressure was measured to be approximately mean of 10 mmHg. The pigtail catheter was mickey oscar into the left atrial appendage, which showed a broccoli-esque anatomy with a posterior curve of t he distal appendage. We decided to switch out this sheath and pigtail out for a single curve sheath which then sat more favorably in the distal appendage. Given the broccoli-esque anatomy of the appen dage as well as the large ostial width of the appendage, we decided to proceed with placement of a 33 mm device. A 33 mm device was deployed successfully. There was a slight q noted on the mitral side , however, there was compression rate from 20% to 30%. A tug test was performed which showed no move ment of the device. The device itself appeared to have a strawberry-esque appearance. There was no leak around the device noted thus there was an adequate seal. The device was then deployed successfu lly. Sheath was pulled back. There was no pericardial effusion noted. The sheath was removed and a purse-string suture was placed. The patient tolerated the procedure well with no complications. IMPRESSION: Successful placement of Watchman 33 mm device by the transfemoral route. PLAN: The patient will be admitted to PCU for further orders following clinical course. /[id number]/MODL
--- NOTE | 2018-02-26 16:40 | CPEKG ---
Test Reason : OPEN Blood Pressure : / mmHG Vent. Rate : 059 BPM Atrial Rate : 059 BPM P-R Int : 218 ms QRS Dur : 091 ms QT Int : 430 ms P-R-T Axes : 010 025 -22 degrees QTc Int : 426 ms Sinus rhythm Borderline prolonged WA interval When compared with ECG of 07/23/2017 WA now longer Confirmed by Palak Avery ([id number]) on 02/26/2018 4:40:17 PM Referred By: Confirmed By:Palak Avery
--- NOTE | 2018-02-26 16:43 | CPEKG ---
Test Reason : OPEN Blood Pressure : / mmHG Vent. Rate : 058 BPM Atrial Rate : 059 BPM P-R Int : 219 ms QRS Dur : 101 ms QT Int : 444 ms P-R-T Axes : 011 026 001 degrees QTc Int : 437 ms Sinus rhythm Borderline prolonged RI interval Confirmed by Palak Avery ([id number]) on 02/26/2018 4:43:28 PM Referred By: Confirmed By:Palak Avery
[2018-02-26] MEDS ORDERED: ASPIRIN 325 MG TAB PO SCH (21:00)
--- NOTE | 2018-02-26 22:10 | PDMN ---
Medical Necessity Medical necessity: Pt meets inpt criteria per MD order and MCG M-505, Atrial Fibrillation. 77 y/o w/hx paroxysmal afib admitted for placement of Watchman device by transfemoral route. anticipate>2Mn for further monitoring/post-op care.
[2018-02-26] MEDS: PROPAFENONE HCL SR 225 MG CAP PO SCH (22:23)
[2018-02-27 04:19] LABS: PLATELET COUNT 209 10^3/uL (150-400)
--- NOTE | 2018-02-27 07:23 | PDCARPN ---
Cardiology Progress Note Chief Complaint: s/p watchman Assessment/Plan: Assessment: s/p watchman Plan: 02/27/18 07:22 doing well d/c suture in groin d/c home f/u next week Subjective: doing well Reviewed/Discussed With: multidisciplinary team Time Spent with Patient: greater than 25 minutes Time Spent with Patient: Greater than 25 minutes spent on this patients care, greater than 50% of time spent counseling, educating, and coordinating care regarding the above mentioned plan. Objective: Vital Signs (8 Hrs) Temp Pulse Resp BP Pulse Ox 02/27/18 04:00 36.6 C 77 20 131/84 H 94 Intake/Output (24 Hrs) 02/26/18 02/27/18 02/28/18 05:59 05:59 05:59 Intake Total 2020 Output Total 925 Balance 1095 Intake: Oral (ml) 770 IV Intake (ml) 1250 Output: Urine (ml) 925 Urinal 925 Other: Weight 76.3 kg Number of Voids Toilet 1 Result Diagrams: 02/27/18 04:04 02/27/18 04:04 - Physical Exam Constitutional: healthy appearing Eyes: PERRL Ears, Nose, Mouth, Throat: moist mucous membranes Cardiovascular: regular rate and rhythm, no murmurs Peripheral Pulses: 1+: femoral (R), femoral (L) Respiratory: clear to auscultate bilat Gastrointestinal: normoactive bowel sounds Genitourinary: no suprapubic tenderness Skin: no rashes Musculoskeletal: no muscular tenderness Neurologic: AAOx3 Psychiatric: cooperative ICD10 Worksheet Patient Problems: Problems Problem Status Onset Atrial fibrillation or flutter Acute Syncope Acute TIA (transient ischemic attack) Acute
[2018-02-27 07:56] VITALS: BP 138/72
--- NOTE | 2018-02-27 08:06 | GDS ---
DISCHARGE DIAGNOSIS: Watchman placement. HOSPITAL COURSE: Briefly this is a 77-year-old male with history of elevated CHADS2-VASc score, inab ility to tolerate long-term anticoagulation therapy, secondary to frequent falls, as well as paroxysm al atrial fibrillation who underwent successful Watchman placement on 02/26/2018. The patient underw ent placement of a Watchman 33 device by the transfemoral route. Post-procedure, patient has done very well. Patient has been ambulating in the halls without problem s. There has been no ectopy noted on the monitor overnight. The patient had slight drop in his hemo globin; however, it is still within the normal range. The patient will be discharged home this helen sanz with his home medications. We will hold his aspirin and start him on anticoagulation therapy for 45 days until his followup DANK. He will follow up with us in the office in 1 weeks' time. /[id number]/MODL
[2018-02-27] MEDS: PROPAFENONE HCL SR 225 MG CAP PO SCH (08:10)
[2018-02-27] MEDS ORDERED: MULTIVITAMINS 1 EACH TAB PO SCH (09:00)
[2018-02-27] MEDS ORDERED: OMEGA-3 FATTY ACIDS 1,000 MG CAP PO SCH (09:00)
[2018-02-27] MEDS ORDERED: POTASSIUM CL 10 MEQ TAB PO SCH (09:00)
[2018-02-27] MEDS ORDERED: LISINOPRIL 40 MG TAB PO SCH (09:00)
[2018-02-27] MEDS ORDERED: Herbals/Supplements -Info Only PO SCH (09:00)
[2018-02-27] MEDS ORDERED: [UNRECOGNIZED DRUG - OTHER] TP SCH (09:00)
[2018-02-27] MEDS ORDERED: DILTIAZEM CD 180 MG CAP PO SCH (09:00)
[2018-02-27] MEDS ORDERED: ASCORBIC ACID 500 MG TAB PO SCH ×2 (09:00)
[2018-02-27] MEDS ORDERED: APIXABAN 2.5 MG TAB PO SCH (09:00)
--- NOTE | 2018-02-27 16:05 | CPEKG ---
Test Reason : OPEN Blood Pressure : / mmHG Vent. Rate : 073 BPM Atrial Rate : 073 BPM P-R Int : 210 ms QRS Dur : 084 ms QT Int : 354 ms P-R-T Axes : -08 014 -37 degrees QTc Int : 390 ms Sinus rhythm First degree AV block Borderline T abnormalities, inferior leads Confirmed by Palak Avery ([id number]) on 02/27/2018 4:05:06 PM Referred By: Confirmed By:Palak Avery
== END 2018-02-27 10:43 | disposition home or self-care (01) | DRG 229 ==
LOC: FCATH 06:34 → F2W 09:17
PROVIDERS: ADMIT Internal Medicine Cardiovascular Disease; ATTEND Internal Medicine Cardiovascular Disease
PROC: 02H73DZ Insertion of Intraluminal Device into Left Atrium, Percutaneous Approach (ICD-10-PCS; principal; 2018-02-26)
DX: I48.0 Paroxysmal atrial fibrillation (principal); Z00.6 Encounter for examination for normal comparison and control in clinical research program; G47.30 Sleep apnea, unspecified; Z79.82 Long term (current) use of aspirin; I10 Essential (primary) hypertension
CPT/HCPCS: C1769; C1893; J0690; J1100; J1644; J2370; J2704; J2720; J3010; Q9967

== ENCOUNTER 2018-04-23 07:38 | Day surgery (SDC) | payer OTHER ==
--- NOTE | 2018-02-26 07:11 | PDANEPAE ---
ANE History of Present Illness 77 yo for watchman ANE Past Medical History - Cardiovascular History Hx Hypertension: Yes Hx Arrhythmias: Yes Hx Chest Pain: No Hx Coronary Artery / Peripheral Vascular Disease: No Hx CHF / Valvular Disease: No Hx Palpitations: No - Pulmonary History Hx COPD: No Hx Asthma/Reactive Airway Disease: No Hx Recent Upper Respiratory Infection: No Hx Oxygen in Use at Home: No Hx Sleep Apnea: Yes - Endocrine History Hx Diabetes: No - Chronic Pain History Chronic Pain: No ANE Review of Systems Review of Systems: - Exercise capacity METS (RN): 4 METS ANE Patient History - Allergies Allergies/Adverse Reactions: No Known Allergies Allergy (Verified 09/09/17 16:27) - Home Medications Home medications: home medication list seen and reviewed Home Medications: Ascorbic Acid [Vitamin C 500 mg (*)] 500 mg PO DAILY 03/02/15 [Last Taken ] Lisinopril [Zestril 40 mg (*)] 40 mg PO DAILY 03/02/15 [Last Taken 02/25/18] Multivitamins [Multivitamin (*)] 1 each PO DAILY 03/02/15 [Last Taken 02/25/18] [place]-3 Fatty Acids [Fish Oil 1000 mg (*)] 2,000 mg PO DAILY 03/02/15 [Last Taken 02/25/18] Diltiazem HCl [Diltiazem 24Hr ER] 180 mg PO DAILY 07/23/17 [Last Taken 02/25/18] Potassium Chloride [Klor-Con 10] 20 meq PO DAILY 07/23/17 [Last Taken 02/25/18] Propafenone HCl [Propafenone HCl ER] 225 mg PO BID 07/23/17 [Last Taken 02/25/18 ] Ascorbic Acid [Vitamin C 500 mg (*)] 500 mg PO DAILY 02/19/18 [Last Taken ] Aspirin [Aspirin 325 mg (*)] 325 mg PO DAILY 02/19/18 [Last Taken 02/25/18] Compounded Testosterone Cream 1 medhat TP DAILY 02/19/18 [Last Taken 02/25/18] Herbals/Supplements -Info Only 1 ea PO DAILY 02/19/18 [Last Taken 02/25/18] Melatonin [Melatonin 3 MG (*)] 3 mg PO HS PRN 02/19/18 [Last Taken 02/25/18] diphenhydrAMINE [Benadryl 25 MG (*)] 25 mg PO HS PRN 02/19/18 [Last Taken ] - Smoking Hx Smoking Status: Never smoked ANE Physical Exam - Airway Neck exam: FROM Mallampati Score: Class 2 Mouth exam: normal dental/mouth exam - Pulmonary Pulmonary: no respiratory distress - Cardiovascular Cardiovascular: regular rate and rhythym - ASA Status ASA Status: III ANE Anesthesia Plan Anesthesia Plan: general endotracheal anesthesia
[2018-04-23] MEDS ORDERED: BENZOCAINE UNIT DOSE SPRAY HURRICAINE MM ONE (07:42)
[2018-04-23] MEDS ORDERED: NS 500 ML IV ONE (07:42)
[2018-04-23] MEDS ORDERED: MIDAZOLAM 2 MG/2 ML VIAL IVP ONE (07:42)
[2018-04-23] MEDS ORDERED: fentaNYL 100 MCG/2 ML INJ IVP ONE (07:42)
--- NOTE | 2018-04-23 08:26 | PDANEPAE ---
ANE Past Medical History - Cardiovascular History Hx Hypertension: Yes Hx Arrhythmias: Yes Hx Chest Pain: No Hx Coronary Artery / Peripheral Vascular Disease: No Hx CHF / Valvular Disease: No Hx Palpitations: No - Pulmonary History Hx COPD: No Hx Asthma/Reactive Airway Disease: No Hx Recent Upper Respiratory Infection: No Hx Oxygen in Use at Home: No Hx Sleep Apnea: Yes - Endocrine History Hx Diabetes: No - Chronic Pain History Chronic Pain: No ANE Review of Systems Review of Systems: - Exercise capacity METS (RN): 4 METS ANE Patient History - Allergies Allergies/Adverse Reactions: No Known Allergies Allergy (Verified 09/09/17 16:27) - Home Medications Home Medications: Lisinopril [Zestril 40 mg (*)] 40 mg PO DAILY 03/02/15 [Last Taken 04/22/18 09: 00] Multivitamins [Multivitamin (*)] 1 each PO DAILY 03/02/15 [Last Taken 04/22/18 09:00] [place]-3 Fatty Acids [Fish Oil 1000 mg (*)] 2,000 mg PO DAILY 03/02/15 [Last Taken 04/22/18 09:00] Diltiazem HCl [Diltiazem 24Hr ER] 180 mg PO DAILY 07/23/17 [Last Taken 04/22/18 09:00] Potassium Chloride [Klor-Con 10] 20 meq PO DAILY 07/23/17 [Last Taken 04/22/18 09:00] Propafenone HCl [Propafenone HCl ER] 225 mg PO BID 07/23/17 [Last Taken 22:00] Ascorbic Acid [Vitamin C 500 mg (*)] 500 mg PO DAILY 02/19/18 [Last Taken 09:00] Compounded Testosterone Cream 1 medhat TP DAILY 02/19/18 [Last Taken 04/22/18 22:00 ] Herbals/Supplements -Info Only 1 ea PO DAILY 02/19/18 [Last Taken 04/22/18 09:00 ] Melatonin [Melatonin 3 MG (*)] 3 mg PO HS PRN 02/19/18 [Last Taken 04/22/18 22: 00] diphenhydrAMINE [Benadryl 25 MG (*)] 25 mg PO HS PRN 02/19/18 [Last Taken 20:00] - Smoking Hx Smoking Status: Never smoked ANE Labs/Vital Signs - Vital Signs Height: 180.34 cm Weight: 76.204 kg ANE Physical Exam - Airway Neck exam: FROM Mallampati Score: Class 1 Mouth exam: normal dental/mouth exam - Pulmonary Pulmonary: no respiratory distress, no rales or rhonchi, clear to auscultation - Cardiovascular Cardiovascular: regular rate and rhythym, no murmur, rub, or gallop - ASA Status ASA Status: III ANE Anesthesia Plan Anesthesia Plan: MAC
[2018-04-23] MEDS ORDERED: LIDOCAINE 2% 2 ML INJ ONE (08:29)
[2018-04-23] MEDS ORDERED: PROPOFOL/EMULSION 500 MG/50 ML BOTTLE IV ONE (08:29)
--- NOTE | 2018-04-23 08:58 | PDGENHP ---
History & Physical Chief Complaint: Post Watchman surveillance History of Present Illness: 77-year-old male who underwent placement of a 33 mm watchman device on February 26. He is now here for routine 45 day post procedure DANK to assess post Watchman device placement. Pertinent Past, Social, Family History: reviewed Cardiorespiratory Assessment: stable for sedation. Sedation will be provided by the anesthesia service
--- NOTE | 2018-04-23 12:13 | ECHO ---
[email or web address] [address] Main: [phone] Fax: Transesophageal Echocardiography Name: PAULINO KIRK MR#: [id number] Study Date: 04/23/2018 Study Time: 09:06 AM Date of : 1940 Age: 77 year(s) Height: ( ) Weight: ( ) BSA: Gender: Male Examination: DANK Indication: Post Watchman 02/26/18/33mm device Image Quality: Contrast: Requested by: Palak Avery Heart Rate: Rhythm: BP: / Procedure Staff Card Punching Machine Operator: Amber Santamaria SARBJIT Reading Physician: Palak Avery MD Requesting Provider: DANK Exam Details Conclusions: Normal global systolic LV function. No residual color flow across the interatrial septum. There is a 33 mm Watchman device well seated in the left atrial appendage. No thrombus on the face of the device. No coy-device leak. . 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 Eustachian valve discernible in right atrium. Mild to moderate mitral regurgitation. Mild plaque noted in the descending aorta.. Measurements: Chambers Valvular Assessment AV/MV Valvular Assessment TV/PV Normal Normal Normal Name Value Range Name Value Range Name Value Range Additional Measurements: Findings: Left Ventricle: Normal global systolic LV function. Left Atrium: No residual color flow across the interatrial septum. Left Atrial Appendage: There is a 33 mm Watchman device well seated in the left atrial appendage. No thrombus on the Patient: PAULINO KIRK Study Date: 04/23/2018 Page 1 of 2 09:06 AM face of the device. No coy-device leak. . 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 Eustachian valve discernible in right atrium. Mitral Valve: Mild to moderate mitral regurgitation. Aortic Valve: The aortic valve is tri-leaflet. There is mild thickening of the aortic cusps. There is no aortic valve regurgitation. Aorta: Mild plaque noted in the descending aorta.. l1n (No Signature Object) Patient: PAULINO KIRK Study Date: 04/23/2018 Page 2 of 2 09:06 AM [id number]
== END 2018-04-23 11:22 | disposition home or self-care (01) ==
LOC: FCATH 07:38
PROVIDERS: ATTEND Internal Medicine Cardiovascular Disease
PROC: B245ZZ4 Ultrasonography of Left Heart, Transesophageal (ICD-10-PCS; principal; 2018-04-23)
DX: Z95.818 Presence of other cardiac implants and grafts (principal); Z09 Encounter for follow-up examination after completed treatment for conditions other than malignant neoplasm; Z86.79 Personal history of other diseases of the circulatory system; G47.30 Sleep apnea, unspecified
CPT/HCPCS: J2704